=== PATIENT | female | born 1955 | race Caucasian/White ===

== ENCOUNTER 2021-01-25 17:35 | Emergency (ER) | payer MEDICARE ==
[2021-01-25 20:30] LABS: BASOPHIL 1.2 % (0-2); EOSINOPHIL 7.7 % (0-7); HCT 36.8 % (37.0-47.0); HGB 11.2 g/dl (12.5-16.0); MCH 28.4 pg (25.0-31.0); MCHC 30.4 g/dL (32.0-36.0); MCV 93.2 fL (78.0-100.0); MONOCYTE 8.1 % (0-12); MPV 9.3 fL (6.0-9.5); NEUTROPHIL 42.7 % (41-80); NRBC 0; PLT 297 K/uL (150-400); RBC 3.95 M/uL (4.20-5.40); RDW 13.5 % (11.5-14.0); WBC 7.7 K/uL (4.0-10.5)
[2021-01-25 21:12] LABS: ALBUMIN 3.5 g/dL (3.4-5.0); BILIRUBIN - TOTAL 0.4 mg/dL (0.2-1.0); BUN/CREAT RATIO (CALC) 21.3 RATIO; CREATININE 1.22 mg/dL (0.51-0.95); GLOBULIN (CALCULATION) 3.4 g/dL; POTASSIUM 4.2 mmol/L (3.5-5.1); TOTAL PROTEIN 6.9 g/dL (6.4-8.2)
== END 2021-01-25 23:21 | disposition home or self-care (01) ==
LOC: FER 17:35
PROVIDERS: Internal Medicine
DX: M79.604 Pain in right leg (principal); M79.605 Pain in left leg; M16.11 Unilateral primary osteoarthritis, right hip; N18.9 Chronic kidney disease, unspecified; N17.9 Acute kidney failure, unspecified; J45.909 Unspecified asthma, uncomplicated
CPT/HCPCS: 36415; 73502; 80053; 84145; 85025; 85379; 93970